=== PATIENT | male | born 1965 | race Caucasian/White ===

== ENCOUNTER 2017-12-19 21:06 | Emergency (ER) | payer BC ==
[~2017-12-19] VITALS: Ht 185.4 cm; Wt 122.5 kg
[~2017-12-19 21:06] MED LIST: ALBU17AE3 IH; LEVO750T6 PO; LISI10TA2 PO; NF-ESOM40C PO
--- NOTE | 2017-12-19 22:05 | ED Upper Extremity ---
General Chief Complaint: Upper Extremity Stated Complaint: R HAND INJ Nursing Triage Note: PATIENT STATES THAT HE WAS HITTING A 2x4 IN AN ATTEMPT TO BREAK IT AND HURT HIS HAND. Nursing Sepsis Screen: No Definite Risk Source: patient Exam Limitations: no limitations History of Present Illness Date Seen by Provider: Dec 19, 2017 Time Seen by Provider: 22:03 Initial Comments to ER with right hand pain after he was punching a 2 x 4 with some friends trying to break it just prior to arrival. Small abrasion over the dorsal aspect of the hand. Onset: just prior to arrival Severity: moderate Pain/Injury Location: right hand Method of Injury: direct blow Modifying Factors: Worse With Movement Allergies and Home Medications Allergies Coded Allergies: No Known Drug Allergies (Unverified , 02/06/14) Home Medications Albuterol 17 Gm Inh, 2 SPRAY IH Q4H PRN for SHORTNESS OF BREATH FOR BREATHING Prescribed by: JENNY MANSFIELD on 02/06/14 0857 Clindamycin HCl 300 Mg Capsule, 300 MG PO TID Prescribed by: JEANNE HE on 12/19/172245 Esomeprazole Mag Trihydrate 40 Mg Capsule.dr, 40 MG PO DAILY, (Reported) Hydrocodone/Acetaminophen 1 Each Tablet, 1 EACH PO Q4H PRN for PAIN-MODERATE Prescribed by: JEANNE HE on 12/19/17 224 Levofloxacin 750 Mg Tablet, 750 MG PO DAILY Prescribed by: JENNY MANSFIELD on 02/06/14 0857 Lisinopril 10 Mg Tablet, 40 MG PO HS, (Reported) Patient Home Medication List Home Medication List Reviewed: Yes Constitutional: see HPI EENTM: see HPI Respiratory: no symptoms reported Cardiovascular: no symptoms reported Genitourinary: no symptoms reported Musculoskeletal: no symptoms reported Skin: see HPI Psychiatric/Neurological: No Symptoms Reported Past Ygsgagj-Azxufc-Lahljh Hx Patient Social History Recent Foreign Travel: No Contact w/Someone Who Travel: No Recent Infectious Disease Expo: No Past Medical History Pneumonia Physical Exam Vital Signs Vital Signs - First Documented 12/19/17 21:33 Temp 98.1 Pulse 94 Resp 18 B/P (MAP) 147/105 (119) Pulse Ox 97 Capillary Refill : Less Than 3 Seconds General Appearance: WD/WN, no apparent distress HEENT: PERRL/EOMI, normal ENT inspection Neck: non-tender, full range of motion Respiratory: no respiratory distress, no accessory muscle use Gastrointestinal: normal bowel sounds, non tender Elbow/Forearm: normal inspection, non-tender Wrist: Yes normal inspection, Yes non-tender Hand: Right, deformity (over the distal third and fourth metacarpals there is ecchymosis. There is dried blood which could be from an abrasion versus puncture wound resulting from open fracture), ecchymosis Neurologic/Tendon: normal motor functions, normal tendon functions Neurologic/Psychiatric: alert, normal mood/affect Skin: normal color, warm/dry Progress/Results/Core Measures Results/Orders My Orders Orders - JEANNE HE APRN Dipht,Pertuss(Acell),Tet Adult (Boostrix (12/19/17 22:15) Hydrocodone/Apap 5/325 Tablet (Lortab 5 (12/19/17 22:15) Hand, Right, 3 Views (12/19/17 22:02) Lidocaine 2% Injection 20 Ml (Xylocaine (12/19/17 22:30) Ondansetron Oral Dissolve Tab (Zofran (12/19/17 22:30) Rx-Clindamycin Capsule (Rx-Cleocin Capsu (12/19/17 22:46) Rx-Hydrocodone/Apap 5-325 Mg (Rx-Vicodin (12/19/17 23:00) Medications Given in ED Current Medications Medications Dose Ordered Sig/Fredi Route Start Time Stop Time Status Last Admin Dose Admin Acetaminophen/ Hydrocodone Bitart 1 tab ONCE ONCE PO 12/19/17 22:15 12/19/17 22:16 DC 12/19/17 22:18 1 TAB Diphtheria/ Tetanus/Acell Pertussis 0.5 ml ONCE ONCE IM 12/19/17 22:15 12/19/17 22:16 DC 12/19/17 22:16 0.5 ML Lidocaine HCl 20 ml ONCE ONCE INJ 12/19/17 22:30 12/19/17 22:31 DC 12/19/17 22:25 20 ML Ondansetron HCl 8 mg ONCE ONCE PO 12/19/17 22:30 12/19/17 22:31 DC 12/19/17 22:25 8 MG Vital Signs/I&O 12/19/17 21:33 Temp 98.1 Pulse 94 Resp 18 B/P (MAP) 147/105 (119) Pulse Ox 97 Blood Pressure Mean: 119 Departure Communication (Admissions) 8784-I did a hematoma block in an attempt to reduce the angulation of the distal fragment.This was done after I cleansed the area with Betadine and allowed to dry. Injected with 6 mL of 2% lidocaine without epinephrine into the hematoma overlying the fracture site. Traction was applied and dorsal pressure applied to the distal fracture fragment. As I was doing this blood did come from one of these 2 abrasions on his hand which I now believe to be a laceration/open fracture rather than simple abrasion. This area is less than 2 mm wide and there is no active bleeding from this. I splinted him in an ulnar gutter style splint We did update his tetanus vaccination status. I spoke with Dr. Ross who is on-call for orthopedics regarding this open fracture and whether or not this warrants washout or any additional treatment. He suggests that oral antibiotics are sufficient and patient can follow-up in the clinic. Impression Primary Impression: Narayan fracture Disposition: 01 HOME, SELF-CARE Condition: Stable Departure-Patient Inst. Decision time for Depature: 22:42 Referrals: [facility] [place] (PCP/Family) Primary Care Physician STEPHANE LYONS MD,VIVIANA ENRIQUEZ,KAREEM LAUREANO,CASSANDRA POWER,CEFERINO Castellano MD Patient Instructions: Boxer's Fracture Add. Discharge Instructions: 1. Return to ER for any concerns such as intolerable pain fevers or chills 2. Elevate the hand for the next 2-3 days as much as possible. This will help With swelling and subsequent pain. You should follow-up with an orthopedic surgeon of your choosing and call one of them tomorrow morning to make an appointment to be seen as soon as possible. A List of local orthopedic surgeons has been provided for you.take antibiotics as directed. All discharge instructions reviewed with patient and/or family. Voiced understanding. Scripts Clindamycin HCl (Clindamycin HCl) 300 Mg Capsule 300 MG PO TID, #15 CAP Prov: JEANNE HE APRN 12/19/17 Hydrocodone/Acetaminophen ([place] 5-325 Tablet) 1 Each Tablet 1 EACH PO Q4H PRN for PAIN-MODERATE, #20 TAB Prov: JEANNE HE APRN 12/19/17 JEANNE HE APRN Dec 19, 2017 22:04
[2017-12-19] MEDS ORDERED: HYDROcodone/APAP 5 MG/325 MG (LORTAB) TAB PO ONE (22:15)
[2017-12-19] MEDS ORDERED: TETANUS,DIPTH,PERTUSS P/F (BOOSTRIX) 0.5 ML VIAL IM ONE (22:15)
[2017-12-19] MEDS ORDERED: LIDOCAINE 2% 20 ML (XYLOCAINE) VIAL INJ ONE (22:30)
[2017-12-19] MEDS ORDERED: ONDANSETRON 4 MG (ZOFRAN) ORAL DISSOLVE TAB PO ONE (22:30)
[2017-12-19] MEDS ORDERED: RX-CLINDAMYCIN 150 MG (CLEOCIN) CAP PPK#4 PO STA (22:46)
[2017-12-19] MEDS ORDERED: HYDR-757 PO (22:46)
[2017-12-19] MEDS ORDERED: CLIN300C11 PO (22:46)
[2017-12-19] MEDS ORDERED: RX-HYDROCODONE/APAP 5/325 MG #4 TAB PK PO PRN (23:00)
[2017-12-19 23:01] VITALS: BP 147/105
--- NOTE | 2017-12-20 06:45 | Diagnostic Imaging Report ---
Indication: Pain, status post injury. Comparison: None Findings: Three radiographic views of the right hand were obtained and demonstrate mildly comminuted intra-articular fracture involving the distal fifth metacarpal. There is slight displacement of the distal fracture fragments anteriorly. Joint space is otherwise maintained. No other acute osseous abnormality identified. No unexpected radiopaque foreign bodies are seen. There is overlying soft tissue edema. Impression: 1. Acute fracture of the fifth metacarpal as described above. Dictated by: Dictated on workstation # [id number]
== END 2017-12-19 23:03 | disposition home or self-care (01) ==
LOC: EDUNIT# 21:06 → ER 21:07
DX: S62.306A Unspecified fracture of fifth metacarpal bone, right hand, initial encounter for closed fracture (principal); Z23 Encounter for immunization; W22.09XA Striking against other stationary object, initial encounter
CPT/HCPCS: 73130; 90471; 90715

== ENCOUNTER 2017-12-30 16:43 | Emergency (ER) | payer BC ==
[~2017-12-30] VITALS: Ht 185.4 cm; Wt 122.5 kg
[~2017-12-30 16:43] MED LIST changes: +CLIN300C11 PO; +HYDR-757 PO
[2017-12-30 17:25] VITALS: BP 134/85
== END 2017-12-30 17:28 | disposition home or self-care (01) ==
LOC: EDUNIT# 16:43 → ER 16:44
DX: S62.91XD Unspecified fracture of right hand, subsequent encounter for fracture with routine healing (principal); X58.XXXD Exposure to other specified factors, subsequent encounter